=== PATIENT | female | born 1960 | race Caucasian/White ===

== ENCOUNTER → 2016-09-30 17:08 | Outpatient (CLI) | payer MEDICAID | END | disposition home or self-care (01) | LOC: D.MAMMO 10:30 | DX: Z12.31 Encounter for screening mammogram for malignant neoplasm of breast (principal) ==

== ENCOUNTER 2017-03-26 10:10 | Emergency (ER) | payer MEDICAID ==
[2017-03-26 11:01] LABS: BASOPHILS 0.2 % (0-2); EOSINOPHILS 5.5 % (0-7); HEMATOCRIT 41.3 % (36.0-48.0); IMMATURE GRANULOCYTES 0.1 % (0-5); LYMPHOCYTES 25.5 % (15-50); MCH 32.6 pg (26.0-34.0); MCHC 33.9 g/dL (31.0-37.0); MEAN PLATELET VOLUME 10.4 fL (7.4-10.4); MONOCYTES 8.5 % (2-11); NEUTROPHILS 60.2 % (40-80); PLATELET COUNT 342 10x3/uL (130-400); RDW 12.6 % (11.5-14.5); WBC 9.5 10x3/uL (4.8-10.8)
[2017-03-26 11:14] LABS: APPEARANCE HAZY (CLEAR); BILIRUBIN NEGATIVE (NEGATIVE); COLOR YELLOW (YELLOW); GLUCOSE NEGATIVE (NEGATIVE); KETONE NEGATIVE (NEGATIVE); NITRITE NEGATIVE (NEGATIVE); PROTEIN NEGATIVE (NEGATIVE); SPECIFIC GRAVITY 1.015 (1.005-1.020); UROBILINOGEN NORMAL (NORMAL)
[2017-03-26 11:25] LABS: ALBUMIN 3.8 g/dL (3.4-5.0); ALKALINE PHOSPHATASE 47 U/L (46-116); ALT (SGPT) 45 U/L (10-68); AMYLASE - SERUM 35 U/L (25-115); BILIRUBIN - TOTAL 0.51 mg/dL (0.2-1.3); CALC OSMOLALITY 266 mosm/kg (275-300); CALCIUM 9.1 mg/dL (8.5-10.1); CARBON DIOXIDE 26.5 mmol/L (21.0-32.0); CHLORIDE - SERUM 99 mmol/L (98-107); CREATININE - SERUM 0.8 mg/dL (0.6-1.3); GLUCOSE 92 mg/dL (74-106); LIPASE 166 U/L (73-393); POTASSIUM - SERUM 3.7 mmol/L (3.5-5.1); PROTEIN - SERUM 7.8 g/dL (6.4-8.2); SODIUM 134 mmol/L (136-145); UREA NITROGEN 9 mg/dL (7-18); eGFR NON AFRICAN AMERICAN 78 mL/min (90-120)
== END 2017-03-26 12:28 | disposition home or self-care (01) ==
LOC: D.ER 10:10
PROVIDERS: Emergency Medicine; Nurse Practitioner Family
DX: K29.00 Acute gastritis without bleeding (principal); R11.10 Vomiting, unspecified; I10 Essential (primary) hypertension; F17.200 Nicotine dependence, unspecified, uncomplicated

== ENCOUNTER 2017-11-04 14:21 | Emergency (ER) | payer MEDICAID ==
[~2017-11-04] VITALS: Ht 162.6 cm; Wt 63.6 kg
[2017-11-04 14:37] VITALS: Ht 162.6 cm; Wt 63.6 kg
[2017-11-04] MEDS ORDERED: ZIAC 2.5/6.25 M1 TAB PO (14:49)
[2017-11-04] MEDS ORDERED: ESTRACE1 MG PO (14:49)
[2017-11-04] MEDS ORDERED: PROVERA 5 MG TAB5 MG PO (14:49)
[2017-11-04] MEDS ORDERED: KEFLEX500 MG PO (14:50)
[2017-11-04] MEDS ORDERED: FOLIC ACID1 MG PO (14:50)
[2017-11-04] MEDS ORDERED: SINGULAIR10 MG PO (14:51)
[2017-11-04] MEDS ORDERED: METHOTREXATE2.5 MG PO (14:51)
[2017-11-04 15:29] LABS: BASOPHILS 0.5 % (0-2); EOSINOPHILS 2.5 % (0-7); HEMOGLOBIN 11.9 g/dL (12-16); IMMATURE GRANULOCYTES 0.1 % (0-5); LYMPHOCYTES 31.5 % (15-50); MCH 33.4 pg (26.0-34.0); MCV 98.3 fL (80.0-100.0); MEAN PLATELET VOLUME 10.3 fL (7.4-10.4); MONOCYTES 8.1 % (2-11); NEUTROPHILS 57.3 % (40-80); PLATELET COUNT 344 10x3/uL (130-400); RBC 3.56 10x6/uL (4.00-5.40); RDW 13.7 % (11.5-14.5); WBC 7.3 10x3/uL (4.8-10.8)
[2017-11-04 15:45] LABS: APPEARANCE CLEAR (CLEAR); BILIRUBIN NEGATIVE (NEGATIVE); COLOR YELLOW (YELLOW); GLUCOSE NEGATIVE (NEGATIVE); KETONE NEGATIVE (NEGATIVE); NITRITE NEGATIVE (NEGATIVE); PROTEIN NEGATIVE (NEGATIVE); RED CELLS - URINE 0-5 /hpf (0-5); UROBILINOGEN NORMAL (NORMAL); WHITE CELLS - URINE OCC /hpf (0-5)
[2017-11-04 15:56] LABS: ALBUMIN 3.3 g/dL (3.4-5.0); ALKALINE PHOSPHATASE 38 U/L (46-116); ALT (SGPT) 20 U/L (10-68); AMYLASE - SERUM 21 U/L (25-115); BILIRUBIN - TOTAL 0.52 mg/dL (0.2-1.3); CALC OSMOLALITY 270 mosm/kg (275-300); CALCIUM 9.3 mg/dL (8.5-10.1); CARBON DIOXIDE 28.1 mmol/L (21.0-32.0); CHLORIDE - SERUM 102 mmol/L (98-107); CREATININE - SERUM 0.8 mg/dL (0.6-1.3); GLUCOSE 96 mg/dL (74-106); LIPASE 98 U/L (73-393); POTASSIUM - SERUM 3.4 mmol/L (3.5-5.1); PROTEIN - SERUM 7.2 g/dL (6.4-8.2); SODIUM 136 mmol/L (136-145); UREA NITROGEN 10 mg/dL (7-18); eGFR NON AFRICAN AMERICAN 78 mL/min (90-120)
[2017-11-04] MEDS ORDERED: ULTRAM50 MG PO (17:40)
[2017-11-04] MEDS ORDERED: ROBAXIN500 MG PO (17:40)
[2017-11-04 18:35] VITALS: BP 132/82
== END 2017-11-04 18:40 | disposition home or self-care (01) ==
LOC: D.ER 14:21
PROVIDERS: Family Medicine
DX: N93.9 Abnormal uterine and vaginal bleeding, unspecified (principal); R10.9 Unspecified abdominal pain; D25.9 Leiomyoma of uterus, unspecified; I10 Essential (primary) hypertension; Z85.828 Personal history of other malignant neoplasm of skin

== ENCOUNTER 2018-08-17 13:30 | Outpatient (CLI) | payer MEDICAID ==
[2017-11-04 14:37] VITALS: BMI 24.0
[~2018-08-17 13:30] MED LIST: ESTRACE1 MG PO; FOLIC ACID1 MG PO; KEFLEX500 MG PO; METHOTREXATE2.5 MG PO; PROVERA 5 MG TAB5 MG PO; ROBAXIN500 MG PO; SINGULAIR10 MG PO; ULTRAM50 MG PO; ZIAC 2.5/6.25 M1 TAB PO
== END 2018-08-17 14:00 | disposition home or self-care (01) ==
LOC: D.MAMMO 13:30
PROVIDERS: ATTEND Family Medicine
DX: Z12.31 Encounter for screening mammogram for malignant neoplasm of breast (principal)

== ENCOUNTER → 2018-12-13 13:50 | Outpatient (CLI) | payer MEDICAID ==
[2017-11-04 14:37] VITALS: BMI 24.0
== END | disposition home or self-care (01) ==
LOC: D.US 13:50
PROVIDERS: ATTEND Family Medicine
DX: R42 Dizziness and giddiness (principal)

== ENCOUNTER → 2018-12-27 10:44 | Outpatient (CLI) | payer MEDICAID ==
[2017-11-04 14:37] VITALS: BMI 24.0
--- NOTE | 2018-12-28 09:53 | ST ---
PATIENT:GEOFF LARES MEDICAL RECORD: [id number] SEX: F LOCATION:[facility] ORDER #: ADMISSION DATE: 12/27/18 AGE OF PATIENT: 58 REFERRING PHYSICIAN: INTERPRETING PHYSICIAN: DESHAWN TAVERA MD DATE OF SERVICE: 12/27/2018 PROCEDURE: Nuclear stress test. INDICATION: Angina, abnormal ECG, hypertension, and family history of coronary artery disease. She was exercised on standard Lexiscan protocol with 32 mCi of sestamibi injected at peak stress, 11 mCi used previously for rest images. FINDINGS: Gated SPECT reveals preserved ejection fraction at 74% with good wall motion and thickening and brightening throughout all segments. SPECT imaging Cardiolite was used as myocardial fusion agent. There is homogeneous uptake throughout all segments at rest and stress with no evidence of inducible ischemia or previous infarction. OVERALL IMPRESSION: 1. This is a normal nuclear stress test with no evidence of inducible ischemia or previous infarction. 2. Gated SPECT reveals a preserved ejection fraction at 74%. In this patient with ongoing symptomatology, the current scan does not suggest the presence of hemodynamically significant coronary artery disease. Evaluate noncardiac etiology of chest pain. TRANSINT:[id number] Voice Confirmation ID: [id number] DOCUMENT ID: [id number] DESHAWN TAVERA MD at 0953 CC: [id number] DICTATION DATE: 12/27/18 1724 ELECTRICAL AND INSTRUMENT TECHNICIAN: 12/28/18 0131 DEP CLI 12/27/18 [facility] [address] [place] [address]
== END | disposition home or self-care (01) ==
LOC: D.HCCARDIO 10:44
PROVIDERS: ATTEND Internal Medicine Interventional Cardiology
DX: I20.9 Angina pectoris, unspecified (principal); R94.31 Abnormal electrocardiogram [ECG] [EKG]; I10 Essential (primary) hypertension

== ENCOUNTER → 2019-04-29 07:55 | Outpatient (CLI) | payer MEDICAID ==
[2017-11-04 14:37] VITALS: BMI 24.0
== END | disposition home or self-care (01) ==
LOC: D.US 07:55
PROVIDERS: ATTEND Internal Medicine Gastroenterology
DX: R10.9 Unspecified abdominal pain (principal); R11.0 Nausea

== ENCOUNTER → 2019-05-26 08:05 | Outpatient (CLI) | payer MEDICAID ==
[2017-11-04 14:37] VITALS: BMI 24.0
== END | disposition home or self-care (01) ==
LOC: D.NM 08:05
PROVIDERS: ATTEND Internal Medicine Gastroenterology
DX: R10.9 Unspecified abdominal pain (principal); R11.0 Nausea; R93.5 Abnormal findings on diagnostic imaging of other abdominal regions, including retroperitoneum

== ENCOUNTER → 2019-06-15 08:26 | Outpatient (CLI) | payer MEDICAID ==
[2017-11-04 14:37] VITALS: BMI 24.0
== END | disposition home or self-care (01) ==
LOC: D.NM 08:26
PROVIDERS: ATTEND Internal Medicine Gastroenterology
DX: R19.4 Change in bowel habit (principal); R14.0 Abdominal distension (gaseous); R11.0 Nausea

== ENCOUNTER → 2019-07-22 12:50 | Outpatient (CLI) | payer MEDICAID ==
[2017-11-04 14:37] VITALS: BMI 24.0
== END | disposition home or self-care (01) ==
LOC: D.RAD 12:50
PROVIDERS: ATTEND Family Medicine
DX: M54.2 Cervicalgia (principal)

== ENCOUNTER 2020-09-04 15:00 | Outpatient (CLI) | payer BC ==
[2017-11-04 14:37] VITALS: BMI 24.0
== END 2020-09-04 16:00 | disposition home or self-care (01) ==
LOC: D.MAMMO 15:00
PROVIDERS: ATTEND Emergency Medicine
DX: Z12.31 Encounter for screening mammogram for malignant neoplasm of breast (principal)